=== PATIENT | male | born 1990 | race Hispanic/Latino ===

== ENCOUNTER → 2022-01-29 | Emergency (ER) | payer SELFPAY ==
[~2022-01-29] VITALS: Ht 165.1 cm; Wt 102.5 kg
[~2022-01-29] MED LIST: CEPHALEXIN500 M1 PO; NO HOME MEDS; PERCOCET 5/321 COMBO PO
[2022-01-29 09:25] VITALS: BP 138/72
[2022-01-29 09:31] VITALS: BP 129/76
[2022-01-29 10:44] VITALS: BP 129/76
== END | disposition home or self-care (01) | DRG 605 ==
LOC: ED 09:17
DX: S61.213A Laceration without foreign body of left middle finger without damage to nail, initial encounter (principal); W23.0XXA Caught, crushed, jammed, or pinched between moving objects, initial encounter